=== PATIENT | female | born 1985 | race African-American/Black ===

== ENCOUNTER 2017-05-22 18:27 | Emergency (ER) | payer MEDICARE, OTHER ==
[~2017-05-22] VITALS: Ht 175.3 cm; Wt 75.0 kg
[2017-05-22] MEDS ORDERED: SODIUM CHLORIDE 0.9% 1,000 ML IV ONE (18:41)
[2017-05-22] MEDS ORDERED: LORAZEPAM 2MG/ML CPJ IM ONE (18:45)
[2017-05-22] MEDS ORDERED: ZIPRASIDONE MESYLATE 20MG/VIAL IM ONE (18:45)
[2017-05-22 20:21] LABS: CLARITY URINE CLEAR (CLEAR); COLOR URINE YELLOW (YELLOW); KETONES URINE NEGATIVE (NEGATIVE); LEUKOCYTE ESTERASE URINE NEGATIVE (NEGATIVE); NITRITE URINE NEGATIVE (NEGATIVE); OCCULT BLOOD URINE NEGATIVE (NEGATIVE); PH URINE 5.5 (4.5-8.0); PROTEIN URINE NEGATIVE (NEGATIVE); SPECIFIC GRAVITY URINE 1.011 (1.005-1.030); UROBILINOGEN URINE 0.2 E.U./dL (0.2-1.0)
[2017-05-22 20:29] LABS: BASOPHILS % 0.9 % (0.0-2.0); EOSINOPHILS % 0.2 % (0.0-5.0); HEMATOCRIT. 45.3 % (36.0-48.0); HEMOGLOBIN. 14.8 g/dL (12.0-16.0); LYMPHOCYTES % 40.1 % (20.0-50.0); MEAN CORPUSCULAR HEMOGLOBIN 27.3 pg (28.0-32.0); MEAN CORPUSCULAR VOLUME 83.5 fL (81.0-99.0); MEAN PLATELET VOLUME 7.5 fl (7.4-10.4); MONOCYTES % 5.7 % (2.0-8.0); NEUTROPHILS % 53.1 % (40.0-76.0); PLATELET 249 x1000/uL (130-400); RED BLOOD CELL COUNT 5.42 mill/uL (4.2-5.4); RED CELL DISTRIBUTION WIDTH 17.9 % (11.6-14.6)
[2017-05-22 20:34] LABS: CHLORIDE 109 mEq/L (98-107)
[2017-05-22 20:40] LABS: CARBON DIOXIDE 27 mEq/L (21-32); ETHANOL BLOOD 251 mg/dL
[2017-05-22 20:43] LABS: *AMPHETAMINES SCREEN URINE NEGATIVE (NEGATIVE); *BARBITURATES SCREEN URINE NEGATIVE (NEGATIVE); *BENZODIAZEPINES SCREEN URINE NEGATIVE (NEGATIVE); CANNABINOID URINE SCREEN NEGATIVE (NEGATIVE); METHADONE URINE SCREEN NEGATIVE (NEGATIVE); OPIATES URINE SCREEN NEGATIVE (NEGATIVE); PHENCYCLIDINE URINE SCREEN NEGATIVE (NEGATIVE)
[2017-05-22 20:45] LABS: *COCAINE SCREEN URINE PRESUMTIVE POSITIVE (NEGATIVE)
[2017-05-22 20:46] LABS: CREATINE KINASE 342 IU/L (26-192); TROPONIN I < 0.02 ng/mL (0.00-0.04)
[2017-05-23 00:46] LABS: HCG SCREEN NEGATIVE
[2017-05-23 03:40] VITALS: BP 101/80
== END 2017-05-23 04:10 | disposition home or self-care (01) ==
LOC: ER 18:46
DX: F10.129 Alcohol abuse with intoxication, unspecified (principal); Y90.8 Blood alcohol level of 240 mg/100 ml or more; F14.10 Cocaine abuse, uncomplicated; F91.8 Other conduct disorders; R41.82 Altered mental status, unspecified; Z78.1 Physical restraint status; R74.8 Abnormal levels of other serum enzymes
CPT/HCPCS: 36415; 70450; 80053; 80305; 81003; 82550; 84443; 84484; 84703; 85025; 93005; 96372; 99285; G0482; J2060; J3486; J7030

== ENCOUNTER 2017-10-20 18:14 | Emergency (ER) | payer MEDICARE, OTHER ==
[~2017-10-20] VITALS: Ht 162.6 cm; Wt 60.0 kg
[2017-10-20 18:15] VITALS: BP 134/72
== END 2017-10-20 21:00 | disposition left against medical advice (07) ==
LOC: ER 18:35
DX: R11.0 Nausea (principal); R10.9 Unspecified abdominal pain; Z53.21 Procedure and treatment not carried out due to patient leaving prior to being seen by health care provider

== ENCOUNTER 2019-10-25 16:59 | Emergency (ER) | payer MEDICAID, MEDICARE, OTHER ==
[~2019-10-25] VITALS: Ht 172.7 cm; Wt 89.0 kg
[2019-10-25] MEDS ORDERED: HALOPERIDOL LACTATE 5MG/ML VIAL IM ONE (18:30)
[2019-10-26 00:07] VITALS: BP 113/62
== END 2019-10-26 01:01 | disposition home or self-care (01) ==
LOC: ER 16:59
DX: F10.129 Alcohol abuse with intoxication, unspecified (principal); Y90.7 Blood alcohol level of 200-239 mg/100 ml
CPT/HCPCS: 36415; 80320; 96372; 99285; J1630; G0480

== ENCOUNTER 2020-01-26 11:33 | Emergency (ER) | payer MEDICAID ==
[~2020-01-26] VITALS: Ht 167.6 cm; Wt 71.0 kg
[2020-01-26 11:40] VITALS: BP 127/76
== END 2020-01-26 11:45 | disposition home or self-care (01) ==
LOC: ER 11:33
DX: Z00.00 Encounter for general adult medical examination without abnormal findings (principal)
CPT/HCPCS: 99281

== ENCOUNTER 2020-10-16 01:11 | Emergency (ER) | payer MEDICAID ==
[~2020-10-16] VITALS: Ht 172.7 cm; Wt 100.0 kg
[2020-10-16] MEDS ORDERED: ZIPRASIDONE MESYLATE 20MG/VIAL IM ONE (01:30)
[2020-10-16] MEDS ORDERED: CEFAZOLIN 1000MG PREMIX 50 ML IV ONE (01:30)
[2020-10-16] MEDS ORDERED: TETANUS, DIPHTHERIA, PERTUSSIS VAC/PF 0.5ML (>7YR OLD) IM ONE (01:30)
[2020-10-16 02:32] LABS: BASOPHILS % 0.4 % (0.0-2.0); EOSINOPHILS % 0.2 % (0.0-5.0); HEMATOCRIT. 38.7 % (36.0-48.0); HEMOGLOBIN. 12.8 g/dL (12.0-16.0); LYMPHOCYTES % 18.6 % (20.0-50.0); MEAN CORPUSCULAR HEMOGLOBIN 30.6 pg (28.0-32.0); MEAN CORPUSCULAR VOLUME 92.2 fL (81.0-99.0); MEAN PLATELET VOLUME 7.9 fl (7.4-10.4); MONOCYTES % 5.9 % (2.0-8.0); NEUTROPHILS % 74.9 % (40.0-76.0); PLATELET 184 x1000/uL (130-400); RED BLOOD CELL COUNT 4.19 mill/uL (4.2-5.4); RED CELL DISTRIBUTION WIDTH 15.2 % (11.6-14.6)
[2020-10-16 02:38] LABS: CHLORIDE 112 mEq/L (98-107)
[2020-10-16 02:43] LABS: PARTIAL THROMBOPLASTIN TIME 26.5 sec (23.4-31.0); PROTHROMBIN TIME 10.8 sec (9.6-11.0)
[2020-10-16 12:19] LABS: CLARITY URINE CLEAR (CLEAR); COLOR URINE YELLOW (YELLOW); KETONES URINE TRACE (NEGATIVE); LEUKOCYTE ESTERASE URINE TRACE (NEGATIVE); NITRITE URINE NEGATIVE (NEGATIVE); OCCULT BLOOD URINE NEGATIVE (NEGATIVE); PROTEIN URINE TRACE (NEGATIVE); SPECIFIC GRAVITY URINE 1.019 (1.005-1.030); UROBILINOGEN URINE 0.2 E.U./dL (0.2-1.0)
[2020-10-16 12:40] LABS: *AMPHETAMINES SCREEN URINE NEGATIVE (NEGATIVE); *BENZODIAZEPINES SCREEN URINE NEGATIVE (NEGATIVE); CANNABINOID URINE SCREEN NEGATIVE (NEGATIVE)
[2020-10-16 12:41] LABS: *BARBITURATES SCREEN URINE NEGATIVE (NEGATIVE); METHADONE URINE SCREEN NEGATIVE (NEGATIVE); OPIATES URINE SCREEN NEGATIVE (NEGATIVE); PHENCYCLIDINE URINE SCREEN NEGATIVE (NEGATIVE)
[2020-10-16 12:45] LABS: *COCAINE SCREEN URINE PRESUMTIVE POSITIVE (NEGATIVE)
[2020-10-16] MEDS ORDERED: IBUP-2029 MT (14:02)
[2020-10-16 14:07] VITALS: BP 118/87
[2020-10-16] MEDS ORDERED: AMOX-424 MT (14:07)
== END 2020-10-16 14:29 | disposition home or self-care (01) ==
LOC: ER 01:11
DX: S60.312A Abrasion of left thumb, initial encounter (principal); N39.0 Urinary tract infection, site not specified; F14.10 Cocaine abuse, uncomplicated; F10.129 Alcohol abuse with intoxication, unspecified; V49.49XA Driver injured in collision with other motor vehicles in traffic accident, initial encounter; Y93.9 Activity, unspecified; Y92.410 Unspecified street and highway as the place of occurrence of the external cause
CPT/HCPCS: 36415; 70450; 71045; 72125; 72170; 80053; 80305; 80320; 81003; 81025; 83690; 85025; 85610; 85730; 86850; 86900; 86901; 87086; 90471; 90715; 96365; 96372; 99285; J0690; J3486; G0480

== ENCOUNTER 2022-08-10 17:24 | Emergency (ER) | payer MEDICAID ==
[~2022-08-10] VITALS: Ht 167.6 cm; Wt 91.0 kg
[~2022-08-10 17:24] MED LIST: AMOX-424 MT; IBUP-2029 MT
[2022-08-10 17:45] VITALS: BP 121/80
[2022-08-10] MEDS ORDERED: KETOROLAC 60MG/2ML VIAL IM STA (21:16)
[2022-08-10 21:27] LABS: CLARITY URINE CLEAR (CLEAR); COLOR URINE YELLOW (YELLOW); KETONES URINE 1+ (NEGATIVE); LEUKOCYTE ESTERASE URINE 1+ (NEGATIVE); NITRITE URINE NEGATIVE (NEGATIVE); OCCULT BLOOD URINE NEGATIVE (NEGATIVE); PH URINE 5.5 (4.5-8.0); PROTEIN URINE NEGATIVE (NEGATIVE); SPECIFIC GRAVITY URINE 1.018 (1.005-1.030)
[2022-08-10] MEDS ORDERED: DEXAMETHASONE 6MG TABLET PO NR (21:30)
[2022-08-10] MEDS ORDERED: DEXAMETHASONE 4MG TABLET PO ONE (21:30)
[2022-08-10] MEDS ORDERED: CEPH500C2 MT (22:10)
== END 2022-08-10 22:30 | disposition home or self-care (01) ==
LOC: ER 17:24
DX: N39.0 Urinary tract infection, site not specified (principal); J02.9 Acute pharyngitis, unspecified; M54.50 Low back pain, unspecified
CPT/HCPCS: 81003; 81025; 87070; 87430; 96372; 99283; J1885; J8540

== ENCOUNTER 2023-10-27 14:49 | Emergency (ER) | payer MEDICAID ==
[~2023-10-27] VITALS: Ht 157.5 cm; Wt 91.0 kg
[~2023-10-27 14:49] MED LIST changes: +CEPH500C2 MT
[2023-10-27 15:00] VITALS: O2SAT 99
[2023-10-27] MEDS ORDERED: NAPR-681 MT (18:17)
[2023-10-27] MEDS ORDERED: CEPH500C2 MT (18:17)
[2023-10-27 18:33] VITALS: BP 147/87; PULSE 115; RESP 16; TEMP 98
[2023-10-27] MEDS: ACETAMINOPHEN 650MG/20.3ML UDC PO ONE (18:39)
[2023-10-27] MEDS: CEPHALEXIN 250MG CAPSULE PO ONE (18:39)
== END 2023-10-27 18:41 | disposition home or self-care (01) ==
LOC: ER 14:49
DX: L03.011 Cellulitis of right finger (principal)
CPT/HCPCS: 73120; 99284

== ENCOUNTER 2023-10-29 14:17 | Emergency (ER) | payer MEDICAID, MEDICARE ==
[~2023-10-29] VITALS: Ht 154.9 cm; Wt 73.0 kg
[~2023-10-29 14:17] MED LIST changes: +NAPR-681 MT
[2023-10-29 14:30] VITALS: BP 128/93; PULSE 111; RESP 16; TEMP 98.9; O2SAT 100
[2023-10-29] MEDS ORDERED: ACET-2708 MT (17:33)
== END 2023-10-29 19:04 | disposition home or self-care (01) ==
LOC: ER 16:05
DX: R60.9 Edema, unspecified (principal)
CPT/HCPCS: 73130; 81025; 99283